=== PATIENT | male | born 1970 | race African-American/Black ===

== ENCOUNTER 2022-11-09 13:45 | Inpatient (IN) | payer OTHER ==
[2022-11-09 15:22] VITALS: BMI 25.7
[2022-11-09] MEDS ORDERED: MAGNESIUM HYDROX 2400MG/30ML ORAL SUSPENSION 30 ML CUP PO PRN (17:40)
[2022-11-09] MEDS ORDERED: ACETAMINOPHEN 325 MG TABLET (FP) PO PRN (17:40)
[2022-11-09] MEDS ORDERED: BENZONATATE 200 MG CAPSULE PO PRN (17:40)
[2022-11-09] MEDS ORDERED: BISMUTH SUBSALICYLATE 524 MG/30 ML PO PRN (17:40)
[2022-11-09] MEDS ORDERED: NALOXONE HCL (KLOXXADO) 8 MG SPRAY NS PRN (17:40)
[2022-11-09] MEDS ORDERED: IBUPROFEN 600 MG TABLET (FP) PO PRN (17:40)
[2022-11-09] MEDS ORDERED: guaiFENesin 600 MG TABLET.ER (FP) PO PRN (17:40)
[2022-11-09] MEDS ORDERED: ONDANSETRON *ODT* 4 MG TABLET SL PRN (17:40)
[2022-11-09] MEDS ORDERED: NALOXONE HCL 0.4 MG/ML VIAL IM PRN (17:40)
[2022-11-09] MEDS ORDERED: LOPERAMIDE HCL 2 MG CAPSULE PO PRN (17:40)
[2022-11-09] MEDS ORDERED: POLYETHYLENE GLYCOL (HEALTHYLAX) 3350 17 GM PACKET PO PRN (17:40)
[2022-11-09] MEDS ORDERED: MAG HYDROX/AL HYDROX/SIMETH 30 ML UNIT-DOSE CUP PO PRN (17:40)
[2022-11-09] MEDS ORDERED: P-EPHED 60MG/TRIPROLIDI 2.5MG TABLET PO PRN (17:40)
[2022-11-09] MEDS ORDERED: IBUPROFEN 400 MG TABLET (FP) PO PRN (17:40)
[2022-11-09] MEDS ORDERED: BENZOCAINE/MENTHOL (CHLORASEPTIC ) LOZENGE MM PRN (17:40)
[2022-11-09] MEDS: THIAMINE HCL 100 MG TABLET (FP) PO SCH (22:27)
[2022-11-09] MEDS: MELATONIN 5 MG TABLETS PO SCH (22:27)
[2022-11-09] MEDS: hydrOXYzine PAMOATE 25 MG CAPSULE (FP) PO PRN (22:27)
[2022-11-10] MEDS: PRENATAL VITAMINS W/ FOLIC ACID TABLET (FP) PO SCH (09:08)
[2022-11-10] MEDS ORDERED: cloNIDine HCL 0.1 MG TABLET PO PRN (10:16)
[2022-11-10] MEDS ORDERED: methaDONE HCL 10 MG TABLET (FOR DETOX USE ONLY) PO ONE (10:45)
[2022-11-10 11:03] LABS: HEMATOCRIT 36.4 % (35.4-49); HEMOGLOBIN 11.4 GM/dL (11.7-16.9); MCH 25.4 pg (25.7-33.7); MCHC 31.2 g/dl (32.0-35.9); MEAN CELL VOLUME 81.5 fl (80-96); MEAN PLT VOLUME 9.4 fl (7.5-11.1); PLATELET COUNT 279 10^3/uL (134-434); RBC 4.47 M/mm3 (4.00-5.60); RDW 15.8 % (11.9-15.9); WHITE BLOOD COUNT 4.9 K/mm3 (4.0-10.0)
[2022-11-10 11:07] LABS: CALCIUM 9.1 mg/dL (8.5-10.1)
[2022-11-10 11:08] LABS: ALBUMIN 3.3 g/dl (3.4-5.0); BLOOD UREA NITROGEN 9.1 mg/dL (7-18)
[2022-11-10 11:59] LABS: CREATININE 0.7 mg/dL (0.55-1.3)
[2022-11-10 12:00] LABS: BILIRUBIN,TOTAL 0.4 mg/dL (0.2-1); TOT PROT 6.6 g/dl (6.4-8.2)
[2022-11-10] MEDS: METHOCARBAMOL 500 MG TABLET PO PRN (22:12)
[2022-11-10] MEDS: hydrOXYzine PAMOATE 25 MG CAPSULE (FP) PO PRN (22:12)
[2022-11-10] MEDS: THIAMINE HCL 100 MG TABLET (FP) PO SCH (22:12)
[2022-11-10] MEDS: MELATONIN 5 MG TABLETS PO SCH (22:12)
[2022-11-11] MEDS: METHOCARBAMOL 500 MG TABLET PO PRN (10:07)
[2022-11-11] MEDS: PRENATAL VITAMINS W/ FOLIC ACID TABLET (FP) PO SCH (10:07)
[2022-11-11] MEDS: DICYCLOMINE HCL 10 MG CAPSULE PO PRN (10:27)
[2022-11-11] MEDS: hydrOXYzine PAMOATE 25 MG CAPSULE (FP) PO PRN (22:12)
[2022-11-11] MEDS: THIAMINE HCL 100 MG TABLET (FP) PO SCH (22:12)
[2022-11-11] MEDS: MELATONIN 5 MG TABLETS PO SCH (22:12)
[2022-11-12] MEDS ORDERED: methaDONE HCL 10 MG TABLET (FOR DETOX USE ONLY) PO ONE (10:00)
[2022-11-12] MEDS: PRENATAL VITAMINS W/ FOLIC ACID TABLET (FP) PO SCH (10:11)
[2022-11-12] MEDS: METHOCARBAMOL 500 MG TABLET PO PRN ×2 (10:11→22:23)
[2022-11-12] MEDS: DICYCLOMINE HCL 10 MG CAPSULE PO PRN (10:11)
[2022-11-12] MEDS: MELATONIN 5 MG TABLETS PO SCH (22:22)
[2022-11-12] MEDS: THIAMINE HCL 100 MG TABLET (FP) PO SCH (22:23)
[2022-11-12] MEDS: hydrOXYzine PAMOATE 25 MG CAPSULE (FP) PO PRN (22:23)
[2022-11-13] MEDS: LISINOPRIL 10 MG TABLET PO SCH ×2 (00:07→09:54)
[2022-11-13] MEDS: PRENATAL VITAMINS W/ FOLIC ACID TABLET (FP) PO SCH (09:54)
[2022-11-13] MEDS: THIAMINE HCL 100 MG TABLET (FP) PO SCH (21:34)
[2022-11-13] MEDS: hydrOXYzine PAMOATE 25 MG CAPSULE (FP) PO PRN (21:34)
[2022-11-13] MEDS: MELATONIN 5 MG TABLETS PO SCH (21:34)
[2022-11-13] MEDS: METHOCARBAMOL 500 MG TABLET PO PRN (21:35)
[2022-11-14] MEDS ORDERED: methaDONE HCL 10 MG TABLET (FOR DETOX USE ONLY) PO ONE (10:00)
[2022-11-14] MEDS: PRENATAL VITAMINS W/ FOLIC ACID TABLET (FP) PO SCH (10:22)
[2022-11-14] MEDS: METHOCARBAMOL 500 MG TABLET PO PRN ×2 (10:22→17:51)
[2022-11-14] MEDS: LISINOPRIL 10 MG TABLET PO SCH (10:22)
[2022-11-14] MEDS: hydrOXYzine PAMOATE 25 MG CAPSULE (FP) PO PRN (22:13)
[2022-11-14] MEDS: THIAMINE HCL 100 MG TABLET (FP) PO SCH (22:13)
[2022-11-14] MEDS: MELATONIN 5 MG TABLETS PO SCH (22:13)
[2022-11-15] MEDS: hydrOXYzine PAMOATE 25 MG CAPSULE (FP) PO PRN (05:50)
[2022-11-15] MEDS: METHOCARBAMOL 500 MG TABLET PO PRN (05:50)
[2022-11-15 10:13] VITALS: BP 116/74; PULSE 82; RESP 16; TEMP 98.1
== END 2022-11-15 12:05 | disposition other institution (70) | DRG 773 ==
LOC: YASAS 13:45 → Y3N 17:57
PROVIDERS: ADMIT Allergy & Immunology; ATTEND Surgery
PROC: HZ2ZZZZ Detoxification Services for Substance Abuse Treatment (ICD-10-PCS; principal; 2022-11-09)
DX: F11.23 Opioid dependence with withdrawal (principal); F14.20 Cocaine dependence, uncomplicated; Z28.310 Unvaccinated for COVID-19; Z28.9 Immunization not carried out for unspecified reason
CPT/HCPCS: 36415; 80053; 85027; 86780; 87635; 87811

== ENCOUNTER 2024-12-16 11:54 | Inpatient (IN) | payer OTHER ==
[2024-12-16 12:28] VITALS: BMI 20.9
[2024-12-16] MEDS ORDERED: BENZOCAINE/MENTHOL (CHLORASEPTIC ) LOZENGE MM PRN (12:55)
[2024-12-16] MEDS ORDERED: guaiFENesin 600 MG TABLET.ER (FP) PO PRN (12:55)
[2024-12-16] MEDS ORDERED: LOPERAMIDE HCL 2 MG CAPSULE PO PRN (12:55)
[2024-12-16] MEDS ORDERED: MAGNESIUM HYDROX 2400MG/30ML ORAL SUSPENSION 30 ML CUP PO PRN (12:55)
[2024-12-16] MEDS ORDERED: P-EPHED 60MG/TRIPROLIDI 2.5MG TABLET PO PRN (12:55)
[2024-12-16] MEDS ORDERED: ONDANSETRON *ODT* 4 MG TABLET SL PRN (12:55)
[2024-12-16] MEDS ORDERED: NALOXONE (NARCAN) HCL 4 MG/0.1 ML SPRAY NS PRN (12:55)
[2024-12-16] MEDS ORDERED: BENZONATATE 200 MG CAPSULE PO PRN (12:55)
[2024-12-16] MEDS ORDERED: IBUPROFEN 400 MG TABLET (FP) PO PRN (12:55)
[2024-12-16] MEDS ORDERED: DICYCLOMINE HCL 10 MG CAPSULE PO PRN (12:55)
[2024-12-16] MEDS ORDERED: BISMUTH SUBSALICYLATE 524 MG/30 ML PO PRN (12:55)
[2024-12-16] MEDS ORDERED: ACETAMINOPHEN 325 MG TABLET (FP) PO PRN (12:55)
[2024-12-16] MEDS ORDERED: POLYETHYLENE GLYCOL (HEALTHYLAX) 3350 17 GM PACKET PO PRN (12:55)
[2024-12-16] MEDS: IBUPROFEN 600 MG TABLET (FP) PO PRN (19:47)
[2024-12-16] MEDS: hydrOXYzine PAMOATE 25 MG CAPSULE (FP) PO PRN (19:47)
[2024-12-16] MEDS: METHOCARBAMOL 500 MG TABLET PO PRN (19:48)
[2024-12-16] MEDS: THIAMINE 100 MG TABLET PO SCH (21:34)
[2024-12-16] MEDS: MELATONIN 5 MG TABLETS PO SCH (21:34)
[2024-12-17] MEDS: PRENATAL VITAMINS W/ FOLIC ACID TABLET (FP) PO SCH (09:45)
[2024-12-17 11:30] LABS: MCHC 30.1 g/dl (32.3-36.5); MEAN CELL VOLUME 85.7 fl (79.0-92.2); MEAN PLT VOLUME 10.5 fl (9.4-12.4); RDW 14.6 % (12.2-16.1)
[2024-12-17 12:19] LABS: GLUCOSE,RANDOM 89.0 mg/dL (74-106); TOT PROT 6.4 g/dl (6.4-8.2)
[2024-12-17 12:20] LABS: CO2 29.0 mmol/L (21-32)
[2024-12-17 12:22] LABS: ALK PHOS 75.0 U/L (40-150)
[2024-12-17 12:25] LABS: CREATININE 0.65 mg/dL (0.55-1.3); SGOT/AST 18.0 U/L (5-34); SGPT/ALT 14.0 U/L (0-55)
[2024-12-18] MEDS: MAG HYDROX/AL HYDROX/SIMETH 30 ML UNIT-DOSE CUP PO PRN (22:04)
[2024-12-22 08:46] VITALS: BP 143/84; PULSE 65; RESP 15; TEMP 96.9
== END 2024-12-22 11:34 | disposition other institution (70) | DRG 773 ==
LOC: YASAS 11:54 → Y3N 13:46
PROVIDERS: ADMIT Neuromusculoskeletal Medicine & OMM; ATTEND Student in an Organized Health Care Education/Training Program
PROC: HZ2ZZZZ Detoxification Services for Substance Abuse Treatment (ICD-10-PCS; principal; 2024-12-16)
DX: F11.23 Opioid dependence with withdrawal (principal); F14.20 Cocaine dependence, uncomplicated; F17.210 Nicotine dependence, cigarettes, uncomplicated; D64.89 Other specified anemias
CPT/HCPCS: 36415; 80053; 80305; 80307; 82962; 85027; 86780; 87811; 93005; 93010